=== PATIENT | female | born 1990 | race Caucasian/White ===

== ENCOUNTER 2018-07-17 21:17 | Emergency (ER) | payer SELFPAY | END 2018-07-18 01:14 | disposition left against medical advice (07) | LOC: FTE 21:17 | DX: Z53.21 Procedure and treatment not carried out due to patient leaving prior to being seen by health care provider (principal) ==

== ENCOUNTER 2019-07-03 19:02 | Emergency (ER) | payer OTHER ==
[2019-07-03] MEDS: KETOROLAC 30 MG INJ IM (19:49)
[2019-07-03] MEDS: OXYCODONE/ACETAMINOPHEN (5/325) TAB PO (19:51)
== END 2019-07-03 20:02 | disposition home or self-care (01) ==
LOC: E/R 19:02
DX: S33.5XXA Sprain of ligaments of lumbar spine, initial encounter (principal); M54.16 Radiculopathy, lumbar region; V89.2XXA Person injured in unspecified motor-vehicle accident, traffic, initial encounter; Z87.891 Personal history of nicotine dependence
CPT/HCPCS: 96372; 99284-25